=== PATIENT | male | born 1975 ===

== ENCOUNTER 2016-07-08 15:59 | Emergency (ER) | payer SELFPAY ==
[2016-07-08 16:09] VITALS: RESP 20
--- NOTE | 2016-07-08 16:47 | RAD ---
PROCEDURE: Right Knee Radiographs. HISTORY: COMPARISON: None available. FINDINGS: BONES: Mild vertical lucency/irregularity involving the lateral edge of the proximal tibia; correlate clinically for possibility of acute fracture. The remainder of the visualized osseous structures appear intact. JOINTS: No dislocation. JOINT EFFUSION: Moderate size suprapatellar joint effusion. OTHER FINDINGS: Soft tissue swelling. No evidence of radiopaque foreign body. IMPRESSION: Mild vertical lucency/irregularity involving the lateral edge of the proximal tibia; correlate clinically for possibility of acute fracture. Moderate suprapatellar joint effusion. Soft tissue swelling.
--- NOTE | 2016-07-08 17:37 | C.PDOC ---
History Of Present Illness 40 y/o male presents to the ED complaining of right knee pain for several months. Patient reports that several months ago he fell and injured the same knee. He notes that he was evaluated at [facility] [place] at that time, told he was "fine," and discharged home. Patient states that the pain has been on and off since then and it became worse yesterday. Denies any weakness, numbness, fever, or other complaints. Chief Complaint (Nursing): Lower Extremity Problem/Injury History Per: Patient History/Exam Limitations: no limitations Onset/Duration Of Symptoms: Days ("several months"), Intermittent Episodes, Persistent Current Symptoms Are (Timing): Still Present Recent travel outside of the [place]: No - Knee Description Of Injury: Fell Currently Unable To: Bend Or Move Alleviating Factor(s): Other (rest) Past Medical History Reviewed: Historical Data, Nursing Documentation, Vital Signs Vital Signs: Last Vital Signs Temp 98.5 F 07/08/16 18:44 Pulse 69 07/08/16 18:44 Resp 20 07/08/16 18:44 BP 128/78 07/08/16 18:44 Pulse Ox 100 07/08/16 18:44 - Medical History PMH: No Chronic Diseases Surgical History: No Surg Hx - [facility] Procedures CLOSURE SKIN & SUBCUTANEOUS NEC (10/03/05) TETANUS TOXOID ADMINIST (10/03/05) Family History: States: No Known Family Hx - Social History Hx Tobacco Use: No Hx Alcohol Use: Yes Hx Substance Use: No - Immunization History Hx Tetanus Toxoid Vaccination: No Hx Influenza Vaccination: No Hx Pneumococcal Vaccination: No Review Of Systems Except As Marked, All Systems Reviewed And Found Negative. Constitutional: Negative for: Fever Musculoskeletal: Positive for: Other (right knee pain) Neurological: Negative for: Weakness, Numbness Physical Exam - Physical Exam Appears: Non-toxic, No Acute Distress Skin: Normal Color, Warm, Dry Head: Atraumatic, Normacephalic Neck: Normal ROM Chest: Symmetrical Extremity: Tenderness (right knee), Capillary Refill (< 2 seconds), No Deformity , Swelling (right knee), Other (difficulty bending the right knee) Pulses: Left Dorsalis Pedis: Normal, Right Dorsalis Pedis: Normal Neurological/Psych: Oriented x3, Normal Speech, Normal Cognition, Normal Sensation ED Course And Treatment O2 Sat by Pulse Oximetry: 97 (ra) Pulse Ox Interpretation: Normal - Other Rad X-Ray, Right Knee X-Ray: Viewed By Me, Read By Radiologist Interpretation: Accession No. : [id number]. Patient Name / ID : TRACI TRUONG / [id number]. Exam Date : 07/08/2016 16:32:35 ( Approved ). Study Comment : Sex / Age : M / 40Y. Creator : Kiley Riley MD. Dictator : Kiley Riley MD. Clinical Education Manager : Ed Special Education Teacher : Kiley Riley MD. Approver2 : Report Date : 07/08/2016 16:46:11. My Comment : . PROCEDURE: Right Knee Radiographs. HISTORY: COMPARISON: None available. FINDINGS: BONES: Mild vertical lucency/irregularity involving the lateral edge of the proximal tibia; correlate clinically for possibility of acute fracture. The remainder of the visualized osseous structures appear intact. JOINTS: No dislocation. JOINT EFFUSION: Moderate size suprapatellar joint effusion. OTHER FINDINGS: Soft tissue swelling. No evidence of radiopaque foreign body. IMPRESSION: Mild vertical lucency/irregularity involving the lateral edge of the proximal tibia; correlate clinically for possibility of acute fracture. Moderate suprapatellar joint effusion. Soft tissue swelling. - CT Scan/US CT, Right Knee Other Rad Studies (CT/US): Read By Radiologist, Radiology Report Reviewed CT/US Interpretation: Accession No. : [id number]. Patient Name / ID : TRACI TRUONG / [id number]. Exam Date : 07/08/2016 17:38:18 ( Approved ). Study Comment : Sex / Age : M / 40Y. Creator : Kiley Riley MD. Dictator : Kiley Riley MD. Clinical Education Manager : Ed Special Education Teacher : Kiley Riley MD. Approver2 : Report Date : 07/08/2016 17:54:02. My Comment : . CT right knee without IV contrast. Indication: Trauma, abnormal findings on radiograph. Comparison: Right knee x-ray performed the same day. Technique : Total exam DLP: 274.89 mGy cm. IV contrast was not administered. Axial noncontrast images of the right knee were obtained. Sagittal coronal reformatted images were generated and reviewed. This CT exam was performed using 1 or more of the following dose reduction techniques: Automated exposure control, adjustment of the MAA and/or kV according to patient size, and/or use of iterative reconstruction technique. Findings: Moderate size suprapatellar joint effusion. Mild cortical irregularity involving the lateral aspect proximal tibia favored to reflect remote injury or degenerative change rather then nondisplaced fracture. Correlate with physical exam to assess for point tenderness. No acute displaced fracture. No dislocation. 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 Sclerotic focus within the proximal fibula measures approximately 3 mm, with likely bone island. Soft tissues appear unremarkable. No evidence of radiopaque foreign body. Impression: Moderate size suprapatellar joint effusion. Minimal cortical irregularity involving the lateral aspect proximal tibia, favored to reflect remote injury or degenerative change rather than nondisplaced fracture. Correlate with physical exam to assess for point tenderness. No acute displaced fracture. No dislocation. Additional incidental findings as above. Progress Note: X-Ray of the right knee was ordered. Patient was treated with Motrin PO. X-Ray reading indicates possible fracture. CT of the right knee was ordered - results were discussed with the patient who expresses understanding. On reassessment, patient reports improvement of pain. Patient is resting comfortably and is in no acute distress. Knee immobilizer was applied by CP and checked by me. Patient was instructed on crutch walking. Patient was instructed to follow up with orthopedist in 2-3 days for further evaluation or return to ED if symptoms persist or worsen. Disposition - Disposition Referrals: [facility] [Outside] [facility] [Outside] [facility] [place] Disposition: HOME/ ROUTINE Disposition Time: 18:16 Condition: STABLE Additional Instructions: Follow up with Orthopedist within 2-3 days. Return to ED if feel worse. Prescriptions: Ibuprofen [Motrin Tab] 600 mg PO Q8 #30 tab Instructions: Knee Pain (ED) - Clinical Impression Clinical Impression: Knee pain - PA / SOLE SEAMER / Resident Statement MD/DO has reviewed & agrees with the documentation as recorded. - Scribe Statement The provider has reviewed the documentation as recorded by the Scribe (Mckenzie Hernandez) All medical record entries made by the Scribe were at my direction and personally dictated by me. I have reviewed the chart and agree that the record accurately reflects my personal performance of the history, physical exam, medical decision making, and the department course for this patient. I have also personally directed, reviewed, and agree with the discharge instructions and disposition.
--- NOTE | 2016-07-08 17:55 | CT ---
CT right knee without IV contrast Indication: Trauma, abnormal findings on radiograph. Comparison: Right knee x-ray performed the same day. Technique: Total exam DLP: 274.89 mGy cm. IV contrast was not administered. Axial noncontrast images of the right knee were obtained. Sagittal coronal reformatted images were generated and reviewed. This CT exam was performed using 1 or more of the following dose reduction techniques: Automated exposure control, adjustment of the MAA and/or kV according to patient size, and/or use of iterative reconstruction technique Findings: Moderate size suprapatellar joint effusion. Mild cortical irregularity involving the lateral aspect proximal tibia favored to reflect remote injury or degenerative change rather then nondisplaced fracture. Correlate with physical exam to assess for point tenderness. No acute displaced fracture. No dislocation. Eccentric sclerotic region involving the lateral proximal tibia measuring approximately 1.5 x 0.8 cm, possibly nonossifying fibroma. Sclerotic focus within the proximal fibula measures approximately 3 mm, with likely bone island. Soft tissues appear unremarkable. No evidence of radiopaque foreign body. Impression: Moderate size suprapatellar joint effusion. Minimal cortical irregularity involving the lateral aspect proximal tibia, favored to reflect remote injury or degenerative change rather than nondisplaced fracture. Correlate with physical exam to assess for point tenderness. No acute displaced fracture. No dislocation. Additional incidental findings as above.
[2016-07-08 18:44] VITALS: BP 128/78; PULSE 69; TEMP 98.5
[2016-07-08 22:55] VITALS: O2SAT 97
== END 2016-07-08 18:48 | disposition home or self-care (01) ==
LOC: C.ER 15:59
DX: M25.561 Pain in right knee (principal)